=== PATIENT | male | born 1985 | race Caucasian/White ===

== ENCOUNTER 2021-02-01 15:06 | Emergency (ER) | payer BC, MEDICAID ==
[~2021-02-01] VITALS: Ht 175.3 cm; Wt 74.8 kg
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
--- NOTE | 2021-02-01 15:34 | NUR ---
CALLED [employer] [facility] [address] WILL DISPATCH A UNIT TO INTERVIEW PATIENT.
--- NOTE | 2021-02-01 16:40 | NUR ---
Patient ama in stable condition.
[2021-02-01 17:17] VITALS: BP 126/80
== END 2021-02-01 17:18 | disposition left against medical advice (07) ==
LOC: ER 15:09
DX: T76.21XA Adult sexual abuse, suspected, initial encounter (principal); K62.89 Other specified diseases of anus and rectum